=== PATIENT | female | born 1950 | race Two or more races ===

== ENCOUNTER 2023-05-29 13:06 | Inpatient (IN) | payer OTHER ==
[2023-05-29] MEDS ORDERED: SODIUM CHLORIDE 0.9% 500 ML INFUS.BAG IV ONE ×2 (13:22→14:33)
[2023-05-29] MEDS ORDERED: ACETAMINOPHEN 1000 MG/100 ML BAG IVPB ONE (13:22)
[2023-05-29 13:44] LABS: VENOUS BASE EXCESS -9.7 mmol/L (-2-2); VENOUS O2 SATURATION 26.2 % (70-80); VENOUS PCO2 34.9 mmHg (38-52); VENOUS PH 7.281 (7.310-7.410)
[2023-05-29 14:10] LABS: INR 2.32 (0.83-1.09); PROTHROMBIN TIME (PATIENT) 26.7 SEC (9.7-13.0)
[2023-05-29 14:13] LABS: ACTIVATED PTT 31.1 SECONDS (25.2-36.5)
[2023-05-29 14:23] LABS: BASO % 0.6 % (0-2.0); EOS % 2.4 % (0-4.5); HEMATOCRIT 40.9 % (32.4-45.2); HEMOGLOBIN 13.3 GM/dL (10.7-15.3); LYMPH % 10.3 % (8-40); MCH 30.1 pg (25.7-33.7); MCHC 32.5 g/dl (32.0-36.0); MEAN CELL VOLUME 92.7 fl (80-96); MONO % 5.1 % (3.8-10.2); NEUT % 81.6 % (42.8-82.8); PLATELET COUNT 267 10^3/uL (134-434); RBC 4.41 M/mm3 (3.60-5.2); RDW 17.4 % (11.6-15.6); WHITE BLOOD COUNT 13.9 K/mm3 (4.0-10.0)
[2023-05-29 14:24] LABS: LACTIC ACID 13.9 mmol/L (0.4-2.0)
[2023-05-29 14:34] LABS: CHLORIDE 97 mmol/L (98-107); POTASSIUM 4.8 mmol/L (3.5-5.1); SODIUM 135 mmol/L (136-145)
[2023-05-29 14:37] LABS: ALBUMIN 1.8 g/dl (3.4-5.0); ANION GAP 20 mmol/L (4-13); BLOOD UREA NITROGEN 45.6 mg/dL (7-18); CALCIUM 8.2 mg/dL (8.5-10.1); CO2 17 mmol/L (21-32); GLUCOSE,RANDOM 121 mg/dL (74-106); LIPASE 53 U/L (73-393)
[2023-05-29 14:39] LABS: SGPT/ALT 45 U/L (13-61)
[2023-05-29 14:41] LABS: BILIRUBIN,TOTAL 0.6 mg/dL (0.2-1); SGOT/AST 117 U/L (15-37); TOT PROT 6.2 g/dl (6.4-8.2)
[2023-05-29 14:42] LABS: ALK PHOS 124 U/L (45-117)
[2023-05-29] MEDS ORDERED: AZTREONAM 1 GM in DEXTROSE 5%-WATER - 50 ML IVPB ONE (14:48)
[2023-05-29] MEDS ORDERED: VANCOMYCIN HCL 1,500 MG in DEXTROSE 5%-WATER - 500 ML IVPB ONE (14:48)
[2023-05-29] MEDS ORDERED: AZTREONAM 1 GM VIAL (RESTRICTED TO ID) ONE ×2 (14:51→20:47)
[2023-05-29 14:52] LABS: PLATELET ESTIMATE ADEQUATE
[2023-05-29 15:39] LABS: EPI CELLS 21 /uL (0-25.1); HYALINE CASTS 4 /uL (0-3.1); PH,URINE 5.5 (5.0-8.0); URINE APPEARANCE CLEAR; URINE BACTERIA 8 /uL (0-1359); URINE BILIRUBIN NEGATIVE (NEGATIVE); URINE COLOR YELLOW; URINE GLUCOSE (UA) NEGATIVE (NEGATIVE); URINE KETONE TRACE (NEGATIVE); URINE LEUK ESTERASE NEGATIVE (NEGATIVE); URINE NITRITE NEGATIVE (NEGATIVE); URINE PROTEIN 1+ (NEGATIVE); URINE RBC 41 /uL (0-23.9); URINE UROBILINOGEN 0.2 mg/dL (0.2-1.0); URINE WBC 27 /uL (0-25.8)
[2023-05-29] MEDS ORDERED: SODIUM CHLORIDE 1,000 ML IV SCH (17:00)
[2023-05-29] MEDS ORDERED: ONDANSETRON *ODT* 4 MG TABLET SL PRN (17:14)
[2023-05-29 19:04] LABS: LACTIC ACID 5.5 mmol/L (0.4-2.0)
[2023-05-29] MEDS ORDERED: HEPARIN NA (PORCINE) 5,000 UNITS/ML 1ML VIAL ONE (20:47)
[2023-05-29] MEDS ORDERED: DEXTROSE 5%-WATER 100 ML IVPB ONE (20:48)
[2023-05-29] MEDS: HEPARIN NA (PORCINE) 5,000 UNITS/ML 1ML VIAL SQ SCH (22:36)
[2023-05-29] MEDS: AZTREONAM 1 GM in DEXTROSE 5%-WATER - 50 ML IVPB SCH (22:36)
[2023-05-30] MEDS: AZTREONAM 1 GM in DEXTROSE 5%-WATER - 50 ML IVPB SCH ×5 (06:12→18:38)
[2023-05-30 07:45] LABS: BASO % 0.8 % (0-2.0); EOS % 3.2 % (0-4.5); HEMATOCRIT 39.3 % (32.4-45.2); HEMOGLOBIN 12.6 GM/dL (10.7-15.3); LYMPH % 4.2 % (8-40); MCH 29.9 pg (25.7-33.7); MEAN CELL VOLUME 93.4 fl (80-96); MEAN PLT VOLUME 8.7 fl (7.5-11.1); NEUT % 88.8 % (42.8-82.8); PLATELET COUNT 205 10^3/uL (134-434); RDW 16.3 % (11.6-15.6); WHITE BLOOD COUNT 11.5 K/mm3 (4.0-10.0)
[2023-05-30 07:58] LABS: CALCIUM 7.2 mg/dL (8.5-10.1); POTASSIUM 4.5 mmol/L (3.5-5.1)
[2023-05-30 07:59] LABS: BLOOD UREA NITROGEN 42.9 mg/dL (7-18)
[2023-05-30 08:02] LABS: CREATININE 1.3 mg/dL (0.55-1.3)
[2023-05-30] MEDS: TORSEMIDE 20 MG TABLET (FP) PO SCH (11:39)
[2023-05-30] MEDS: PANTOPRAZOLE 40 MG TABLET PO SCH (11:39)
[2023-05-30] MEDS: amLODIPine BESYLATE 5 MG TABLET (FP) PO SCH (11:39)
[2023-05-30] MEDS: HEPARIN NA (PORCINE) 5,000 UNITS/ML 1ML VIAL SQ SCH (11:46)
[2023-05-30] MEDS ORDERED: VANCOMYCIN 1 GRAM (PRE-DOCKED) 1,000 MG/250 ML BAG IVPB SCH (14:30)
[2023-05-30] MEDS ORDERED: LENVATINIB MESYLATE PO SCH (15:30)
[2023-05-30] MEDS: VANCOMYCIN/WATER FOR INJ (PEG) 1,000 MG/200 ML BAG IVPB SCH (21:36)
[2023-05-31] MEDS: AZTREONAM 1 GM in DEXTROSE 5%-WATER - 50 ML IVPB SCH ×3 (02:46→18:49)
[2023-05-31 08:02] LABS: BASO % 1.1 % (0-2.0); HEMATOCRIT 36.7 % (32.4-45.2); LYMPH % 6.4 % (8-40); MCH 30.4 pg (25.7-33.7); MCHC 32.8 g/dl (32.0-36.0); MEAN CELL VOLUME 92.6 fl (80-96); MEAN PLT VOLUME 8.7 fl (7.5-11.1); MONO % 5.1 % (3.8-10.2); NEUT % 83.4 % (42.8-82.8); PLATELET COUNT 197 10^3/uL (134-434); RBC 3.96 M/mm3 (3.60-5.2); WHITE BLOOD COUNT 10.2 K/mm3 (4.0-10.0)
[2023-05-31 08:20] LABS: POTASSIUM 3.6 mmol/L (3.5-5.1)
[2023-05-31 08:33] LABS: CALCIUM 7.2 mg/dL (8.5-10.1)
[2023-05-31 08:34] LABS: BLOOD UREA NITROGEN 39.8 mg/dL (7-18)
[2023-05-31 08:37] LABS: BILIRUBIN,DIRECT 0.2 mg/dL (0.0-0.2); BILIRUBIN,TOTAL 0.5 mg/dL (0.2-1); CREATININE 1.3 mg/dL (0.55-1.3)
[2023-05-31 08:50] LABS: ALBUMIN 1.3 g/dl (3.4-5.0)
[2023-05-31] MEDS ORDERED: AZTREONAM 1 GM VIAL (RESTRICTED TO ID) ONE (09:41)
[2023-05-31] MEDS: TORSEMIDE 20 MG TABLET (FP) PO SCH (09:50)
[2023-05-31] MEDS: amLODIPine BESYLATE 5 MG TABLET (FP) PO SCH (09:52)
[2023-05-31] MEDS: PANTOPRAZOLE 40 MG TABLET PO SCH (09:53)
[2023-05-31] MEDS: RIVAROXABAN 20 MG TABLET PO SCH (18:51)
[2023-05-31] MEDS ORDERED: ONDANSETRON 4 MG/2 ML VIAL IVPUSH ONE (19:29)
[2023-05-31] MEDS: VANCOMYCIN/WATER FOR INJ (PEG) 1,000 MG/200 ML BAG IVPB SCH (20:02)
[2023-06-01] MEDS: AZTREONAM 1 GM in DEXTROSE 5%-WATER - 50 ML IVPB SCH ×3 (01:26→17:12)
[2023-06-01] MEDS: PANTOPRAZOLE 40 MG TABLET PO SCH (09:40)
[2023-06-01] MEDS: TORSEMIDE 20 MG TABLET (FP) PO SCH (09:40)
[2023-06-01] MEDS: amLODIPine BESYLATE 5 MG TABLET (FP) PO SCH (09:40)
[2023-06-01] MEDS: ASCORBIC ACID 250 MG TABLET (FP) PO SCH (09:40)
[2023-06-01] MEDS: MULTIVITAMINS (DAILY MVI) TABLET (FP) PO SCH (11:29)
[2023-06-01] MEDS: BANATROL PLUS POWDER PACKET PO SCH ×2 (13:19→22:53)
[2023-06-01] MEDS: RIVAROXABAN 20 MG TABLET PO SCH (17:13)
[2023-06-01] MEDS: VANCOMYCIN/WATER FOR INJ (PEG) 1,000 MG/200 ML BAG IVPB SCH (18:09)
[2023-06-02] MEDS: ACETAMINOPHEN 325 MG TABLET (FP) PO PRN (00:37)
[2023-06-02] MEDS: PHENYLEPHRINE HCL/COCOA BUTTER 1 EACH SUPP.RECT RC SCH ×4 (00:37→22:25)
[2023-06-02] MEDS: AZTREONAM 1 GM in DEXTROSE 5%-WATER - 50 ML IVPB SCH ×3 (03:00→17:31)
[2023-06-02] MEDS: BANATROL PLUS POWDER PACKET PO SCH ×3 (06:29→22:25)
[2023-06-02] MEDS: LEVOTHYROXINE NA 25 MCG TABLET (FP) PO SCH (06:30)
[2023-06-02 08:37] LABS: POTASSIUM 3.8 mmol/L (3.5-5.1)
[2023-06-02 08:44] LABS: CALCIUM 7.6 mg/dL (8.5-10.1)
[2023-06-02 08:45] LABS: ALBUMIN 1.2 g/dl (3.4-5.0)
[2023-06-02 08:49] LABS: BILIRUBIN,TOTAL 0.7 mg/dL (0.2-1); CREATININE 1.3 mg/dL (0.55-1.3)
[2023-06-02 08:56] LABS: BASO % 1.2 % (0-2.0); HEMATOCRIT 37.9 % (32.4-45.2); HEMOGLOBIN 12.1 GM/dL (10.7-15.3); LYMPH % 7.3 % (8-40); MCH 29.8 pg (25.7-33.7); MCHC 31.9 g/dl (32.0-36.0); MEAN CELL VOLUME 93.3 fl (80-96); MEAN PLT VOLUME 8.7 fl (7.5-11.1); NEUT % 83.5 % (42.8-82.8); PLATELET COUNT 240 10^3/uL (134-434); RBC 4.06 M/mm3 (3.60-5.2); RDW 18.5 % (11.6-15.6); WHITE BLOOD COUNT 7.7 K/mm3 (4.0-10.0)
[2023-06-02] MEDS: amLODIPine BESYLATE 5 MG TABLET (FP) PO SCH (10:37)
[2023-06-02] MEDS: ASCORBIC ACID 250 MG TABLET (FP) PO SCH (10:37)
[2023-06-02] MEDS: MULTIVITAMINS (DAILY MVI) TABLET (FP) PO SCH (10:38)
[2023-06-02] MEDS: PANTOPRAZOLE 40 MG TABLET PO SCH (10:38)
[2023-06-02] MEDS: TORSEMIDE 20 MG TABLET (FP) PO SCH (10:38)
[2023-06-02] MEDS: RIVAROXABAN 20 MG TABLET PO SCH (17:31)
[2023-06-03] MEDS: AZTREONAM 1 GM in DEXTROSE 5%-WATER - 50 ML IVPB SCH ×3 (02:38→17:34)
[2023-06-03] MEDS: BANATROL PLUS POWDER PACKET PO SCH ×3 (06:13→23:14)
[2023-06-03] MEDS: LEVOTHYROXINE NA 25 MCG TABLET (FP) PO SCH (06:13)
[2023-06-03] MEDS: MULTIVITAMINS (DAILY MVI) TABLET (FP) PO SCH (09:54)
[2023-06-03] MEDS: PANTOPRAZOLE 40 MG TABLET PO SCH (09:54)
[2023-06-03] MEDS: amLODIPine BESYLATE 5 MG TABLET (FP) PO SCH (09:54)
[2023-06-03] MEDS: ASCORBIC ACID 250 MG TABLET (FP) PO SCH (09:54)
[2023-06-03] MEDS: TORSEMIDE 20 MG TABLET (FP) PO SCH (09:54)
[2023-06-03] MEDS: PHENYLEPHRINE HCL/COCOA BUTTER 1 EACH SUPP.RECT RC SCH ×3 (10:09→23:47)
[2023-06-03] MEDS: RIVAROXABAN 20 MG TABLET PO SCH (17:34)
[2023-06-03] MEDS ORDERED: ONDANSETRON *ODT* 4 MG TABLET SL PRN (21:37)
[2023-06-04] MEDS: AZTREONAM 1 GM in DEXTROSE 5%-WATER - 50 ML IVPB SCH ×3 (01:28→17:51)
[2023-06-04] MEDS: LEVOTHYROXINE NA 25 MCG TABLET (FP) PO SCH (06:09)
[2023-06-04] MEDS: BANATROL PLUS POWDER PACKET PO SCH ×3 (06:10→23:00)
[2023-06-04] MEDS: TORSEMIDE 20 MG TABLET (FP) PO SCH (09:58)
[2023-06-04] MEDS: PANTOPRAZOLE 40 MG TABLET PO SCH (09:59)
[2023-06-04] MEDS: MULTIVITAMINS (DAILY MVI) TABLET (FP) PO SCH (09:59)
[2023-06-04] MEDS: amLODIPine BESYLATE 5 MG TABLET (FP) PO SCH (10:00)
[2023-06-04] MEDS: ASCORBIC ACID 250 MG TABLET (FP) PO SCH (10:01)
[2023-06-04] MEDS: PHENYLEPHRINE HCL/COCOA BUTTER 1 EACH SUPP.RECT RC SCH ×2 (10:37→23:00)
[2023-06-04] MEDS: MINERAL OIL/PET HY-PHL TOPICAL OINTMENT 454 GM JAR TP SCH ×2 (18:46→23:10)
[2023-06-04] MEDS: RIVAROXABAN 20 MG TABLET PO SCH (18:48)
[2023-06-05] MEDS: AZTREONAM 1 GM in DEXTROSE 5%-WATER - 50 ML IVPB SCH ×3 (01:09→17:42)
[2023-06-05] MEDS: BANATROL PLUS POWDER PACKET PO SCH ×3 (06:12→22:43)
[2023-06-05] MEDS: LEVOTHYROXINE NA 25 MCG TABLET (FP) PO SCH (06:12)
[2023-06-05] MEDS ORDERED: COLLAGENASE CLOSTRIDIUM HIST. 30 GRAMS TUBE TP SCH (10:00)
[2023-06-05] MEDS: amLODIPine BESYLATE 5 MG TABLET (FP) PO SCH (10:09)
[2023-06-05] MEDS: TORSEMIDE 20 MG TABLET (FP) PO SCH (10:09)
[2023-06-05] MEDS: ASCORBIC ACID 250 MG TABLET (FP) PO SCH (10:09)
[2023-06-05] MEDS: MULTIVITAMINS (DAILY MVI) TABLET (FP) PO SCH (10:09)
[2023-06-05] MEDS: PANTOPRAZOLE 40 MG TABLET PO SCH (10:10)
[2023-06-05] MEDS: MINERAL OIL/PET HY-PHL TOPICAL OINTMENT 454 GM JAR TP SCH ×2 (11:11→22:43)
[2023-06-05] MEDS: PHENYLEPHRINE HCL/COCOA BUTTER 1 EACH SUPP.RECT RC SCH ×2 (14:38→22:43)
[2023-06-05] MEDS: RIVAROXABAN 20 MG TABLET PO SCH (17:42)
[2023-06-06] MEDS: ACETAMINOPHEN 325 MG TABLET (FP) PO PRN (01:51)
[2023-06-06] MEDS: LEVOTHYROXINE NA 25 MCG TABLET (FP) PO SCH (06:33)
[2023-06-06] MEDS: BANATROL PLUS POWDER PACKET PO SCH ×3 (06:33→22:04)
[2023-06-06] MEDS: amLODIPine BESYLATE 5 MG TABLET (FP) PO SCH (10:04)
[2023-06-06] MEDS: MULTIVITAMINS (DAILY MVI) TABLET (FP) PO SCH (10:04)
[2023-06-06] MEDS: PANTOPRAZOLE 40 MG TABLET PO SCH (10:04)
[2023-06-06] MEDS: ASCORBIC ACID 250 MG TABLET (FP) PO SCH (10:04)
[2023-06-06] MEDS: TORSEMIDE 20 MG TABLET (FP) PO SCH (10:04)
[2023-06-06] MEDS: MINERAL OIL/PET HY-PHL TOPICAL OINTMENT 454 GM JAR TP SCH ×2 (10:05→22:04)
[2023-06-06] MEDS: PHENYLEPHRINE HCL/COCOA BUTTER 1 EACH SUPP.RECT RC SCH ×2 (11:39→22:05)
[2023-06-06] MEDS: RIVAROXABAN 20 MG TABLET PO SCH (17:03)
[2023-06-07] MEDS: BANATROL PLUS POWDER PACKET PO SCH ×3 (06:24→22:50)
[2023-06-07] MEDS: LEVOTHYROXINE NA 25 MCG TABLET (FP) PO SCH (06:25)
[2023-06-07] MEDS: PANTOPRAZOLE 40 MG TABLET PO SCH (10:06)
[2023-06-07] MEDS: MULTIVITAMINS (DAILY MVI) TABLET (FP) PO SCH (10:06)
[2023-06-07] MEDS: TORSEMIDE 20 MG TABLET (FP) PO SCH (10:06)
[2023-06-07] MEDS: amLODIPine BESYLATE 5 MG TABLET (FP) PO SCH (10:06)
[2023-06-07] MEDS: ASCORBIC ACID 250 MG TABLET (FP) PO SCH (10:06)
[2023-06-07] MEDS: MINERAL OIL/PET HY-PHL TOPICAL OINTMENT 454 GM JAR TP SCH ×2 (10:07→22:51)
[2023-06-07] MEDS: ACETAMINOPHEN 325 MG TABLET (FP) PO PRN (10:08)
[2023-06-07] MEDS: PHENYLEPHRINE HCL/COCOA BUTTER 1 EACH SUPP.RECT RC SCH ×2 (10:20→22:50)
[2023-06-07] MEDS: RIVAROXABAN 20 MG TABLET PO SCH (17:26)
[2023-06-08] MEDS: BANATROL PLUS POWDER PACKET PO SCH ×3 (07:06→21:48)
[2023-06-08] MEDS: LEVOTHYROXINE NA 25 MCG TABLET (FP) PO SCH (07:06)
[2023-06-08] MEDS: TORSEMIDE 20 MG TABLET (FP) PO SCH (10:00)
[2023-06-08] MEDS: ASCORBIC ACID 250 MG TABLET (FP) PO SCH (10:01)
[2023-06-08] MEDS: PANTOPRAZOLE 40 MG TABLET PO SCH (10:01)
[2023-06-08] MEDS: MULTIVITAMINS (DAILY MVI) TABLET (FP) PO SCH (10:01)
[2023-06-08] MEDS: amLODIPine BESYLATE 5 MG TABLET (FP) PO SCH (10:01)
[2023-06-08] MEDS: PHENYLEPHRINE HCL/COCOA BUTTER 1 EACH SUPP.RECT RC SCH ×2 (10:50→21:48)
[2023-06-08] MEDS: MINERAL OIL/PET HY-PHL TOPICAL OINTMENT 454 GM JAR TP SCH ×2 (12:07→21:48)
[2023-06-08] MEDS: ASCORBIC ACID 500 MG TABLET (FP) PO SCH ×2 (18:28→21:48)
[2023-06-09] MEDS: ACETAMINOPHEN 325 MG TABLET (FP) PO PRN (04:05)
[2023-06-09] MEDS: BANATROL PLUS POWDER PACKET PO SCH ×3 (06:24→22:17)
[2023-06-09] MEDS: LEVOTHYROXINE NA 25 MCG TABLET (FP) PO SCH (06:35)
[2023-06-09] MEDS: TORSEMIDE 20 MG TABLET (FP) PO SCH (10:31)
[2023-06-09] MEDS: amLODIPine BESYLATE 5 MG TABLET (FP) PO SCH (10:32)
[2023-06-09] MEDS: PANTOPRAZOLE 40 MG TABLET PO SCH (10:32)
[2023-06-09] MEDS: ASCORBIC ACID 500 MG TABLET (FP) PO SCH ×2 (10:32→22:17)
[2023-06-09] MEDS: MULTIVITAMINS (DAILY MVI) TABLET (FP) PO SCH (10:32)
[2023-06-09] MEDS: MINERAL OIL/PET HY-PHL TOPICAL OINTMENT 454 GM JAR TP SCH (10:33)
[2023-06-09] MEDS: PHENYLEPHRINE HCL/COCOA BUTTER 1 EACH SUPP.RECT RC SCH (10:34)
[2023-06-09] MEDS: LOPERAMIDE HCL 2 MG CAPSULE PO PRN ×2 (10:37→22:16)
[2023-06-09 12:09] LABS: BASO % 0.2 % (0-2.0); EOS % 0.1 % (0-4.5); HEMATOCRIT 35.3 % (32.4-45.2); HEMOGLOBIN 11.5 GM/dL (10.7-15.3); LYMPH % 1.5 % (8-40); MCH 31.5 pg (25.7-33.7); MCHC 32.5 g/dl (32.0-36.0); MEAN CELL VOLUME 97.1 fl (80-96); MEAN PLT VOLUME 8.5 fl (7.5-11.1); MONO % 0.7 % (3.8-10.2); NEUT % 97.5 % (42.8-82.8); PLATELET COUNT 387 10^3/uL (134-434); RBC 3.63 M/mm3 (3.60-5.2); RDW 22.7 % (11.6-15.6); WHITE BLOOD COUNT 16.4 K/mm3 (4.0-10.0)
[2023-06-09 12:29] LABS: CHLORIDE 98 mmol/L (98-107); SODIUM 129 mmol/L (136-145)
[2023-06-09 12:31] LABS: CALCIUM 7.4 mg/dL (8.5-10.1)
[2023-06-09 12:32] LABS: ALBUMIN 1.3 g/dl (3.4-5.0); ANION GAP 11 mmol/L (4-13); CO2 20 mmol/L (21-32); GLUCOSE,RANDOM 128 mg/dL (74-106)
[2023-06-09 12:35] LABS: CREATININE 3.9 mg/dL (0.55-1.3); SGOT/AST 99 U/L (15-37); SGPT/ALT 49 U/L (13-61)
[2023-06-09 12:36] LABS: BILIRUBIN,TOTAL 0.5 mg/dL (0.2-1); TOT PROT 5.5 g/dl (6.4-8.2)
[2023-06-09 12:44] LABS: ALK PHOS 248 U/L (45-117); BLOOD UREA NITROGEN 107.7 mg/dL (7-18)
[2023-06-09 13:00] LABS: ANISOCYTOSIS 2+; MACROCYTOSIS 0; TARGET CELLS 1+
[2023-06-09] MEDS: DEXTROSE 5%-NORMAL SALINE 1,000 ML IV SCH (18:10)
[2023-06-09] MEDS ORDERED: PHENOL 177 ML SPRAY BOTTLE MM PRN (18:17)
[2023-06-09 19:36] VITALS: BMI 32.8
[2023-06-10 06:24] VITALS: RESP 18
[2023-06-10] MEDS: LEVOTHYROXINE NA 25 MCG TABLET (FP) PO SCH (06:25)
[2023-06-10] MEDS: BANATROL PLUS POWDER PACKET PO SCH ×2 (06:25→14:12)
[2023-06-10] MEDS: ASCORBIC ACID 500 MG TABLET (FP) PO SCH (09:57)
[2023-06-10] MEDS: MULTIVITAMINS (DAILY MVI) TABLET (FP) PO SCH (09:57)
[2023-06-10 09:58] LABS: BASO % 0.4 % (0-2.0); EOS % 0.4 % (0-4.5); HEMATOCRIT 36.2 % (32.4-45.2); HEMOGLOBIN 11.5 GM/dL (10.7-15.3); LYMPH % 2.5 % (8-40); MCH 31.2 pg (25.7-33.7); MCHC 31.7 g/dl (32.0-36.0); MEAN CELL VOLUME 98.5 fl (80-96); MEAN PLT VOLUME 8.8 fl (7.5-11.1); NEUT % 93.7 % (42.8-82.8); PLATELET COUNT 349 10^3/uL (134-434); RBC 3.67 M/mm3 (3.60-5.2); RDW 23.5 % (11.6-15.6); WHITE BLOOD COUNT 15.9 K/mm3 (4.0-10.0)
[2023-06-10] MEDS: PANTOPRAZOLE 40 MG TABLET PO SCH (09:58)
[2023-06-10] MEDS: amLODIPine BESYLATE 5 MG TABLET (FP) PO SCH (09:58)
[2023-06-10 10:18] LABS: CHLORIDE 99 mmol/L (98-107); POTASSIUM 5.1 mmol/L (3.5-5.1); SODIUM 133 mmol/L (136-145)
[2023-06-10 10:20] LABS: CALCIUM 7.3 mg/dL (8.5-10.1)
[2023-06-10 10:21] LABS: ALBUMIN 1.2 g/dl (3.4-5.0); ANION GAP 15 mmol/L (4-13); CO2 19 mmol/L (21-32); GLUCOSE,RANDOM 94 mg/dL (74-106)
[2023-06-10 10:23] LABS: SGPT/ALT 46 U/L (13-61)
[2023-06-10 10:24] LABS: CREATININE 3.6 mg/dL (0.55-1.3)
[2023-06-10 10:25] LABS: SGOT/AST 90 U/L (15-37); TOT PROT 5.6 g/dl (6.4-8.2)
[2023-06-10 10:26] LABS: ALK PHOS 239 U/L (45-117); BILIRUBIN,TOTAL 0.4 mg/dL (0.2-1)
[2023-06-10 10:36] LABS: BLOOD UREA NITROGEN 112.3 mg/dL (7-18)
[2023-06-10 10:58] LABS: ANISOCYTOSIS 1+; MACROCYTOSIS 0; TARGET CELLS 1+
[2023-06-10] MEDS: DEXTROSE 5%-NORMAL SALINE 1,000 ML IV SCH (12:48)
[2023-06-10 19:09] VITALS: BP 100/57; PULSE 101; TEMP 98.3
== END 2023-06-10 20:20 | disposition hospice, inpatient (51) | DRG 871 ==
LOC: JER 13:06 → JERBED 16:03 → J4W 21:22 → J8W 06-03 21:35
PROVIDERS: ADMIT Internal Medicine; ATTEND Internal Medicine
DX: A41.9 Sepsis, unspecified organism (principal); G93.41 Metabolic encephalopathy; J18.9 Pneumonia, unspecified organism; R65.21 Severe sepsis with septic shock; N17.9 Acute kidney failure, unspecified; E87.20 Acidosis, unspecified; C55 Malignant neoplasm of uterus, part unspecified; I10 Essential (primary) hypertension; C54.1 Malignant neoplasm of endometrium; E86.0 Dehydration
CPT/HCPCS: 0241U-QW; 36415; 71045-TC-FY; 71250-TC; 74176-TC; 76604; 76705-TC; 80048; 80053; 80076; 81003; 82533; 82550; 82553; 82803; 82962; 83605; 83690; 84439; 84443; 84484; 85025; 85610; 85730; 86850; 86900; 86901; 87040; 87045; 87046; 87086; 87324; 87449; 87635; 93005; 93010; 93306-TC; 93308; 97116-GP; 97163-GP; 99285-25; G0480; J1644; Q0162